=== PATIENT | female | born 1975 | race Caucasian/White ===

== ENCOUNTER 2017-01-20 15:55 | Outpatient (CLI) | payer OTHER ==
[~2017-01-20] VITALS: Ht 167.6 cm; Wt 126.0 kg
[~2017-01-20 15:55] MED LIST: AMBIEN10 MG PO; ASPIRIN81 M2 PO; LABETALOL HCL100 MG PO; PRENATAL TABLE1 EAC3 PO; PROZAC20 MG PO; XANAX1 MG PO
[2017-01-20 16:24] VITALS: BP 130/68
[2017-01-20 16:48] VITALS: BP 159/74
[2017-01-20 17:05] VITALS: BP 129/59
[2017-01-20 17:07] LABS: EOSINOPHIL (%) 0.6 % (0-5); EOSINOPHIL COUNT 0.1 K/uL (0-0.3); HEMATOCRIT 31.7 % (36.0-46.0); IMMATURE GRANULOCYTE (%) 1.2 % (0.0-0.7); IMMATURE GRANULOCYTE COUNT 0.1 K/uL; INSTRUMENT ABS NEUTROPHIL CT 7.2 K/uL; LYMPHOCYTE COUNT 2.2 K/uL (1.0-2.8); MCH 29.5 PG (29.0-34.0); MCHC 32.2 G/DL (30.0-36.0); MCV 91.6 FL (83-99); MEAN PLAT.VOLUME 10.5 uM^3 (9.5-12.4); MONOCYTE (%) 4.3 % (3-12); MONOCYTE COUNT 0.4 K/uL (0-0.8); NEUTROPHIL (%) 71.6 % (45-76); NEUTROPHIL COUNT 7.2 K/uL (1.8-6.4); NRBC (%) 0.3 /100 WBC (0-0); PLATELET COUNT 318 K/uL (156-360); RBC DIS.WIDTH-CV 14.4 % (11.8-14.6); RBC DIS.WIDTH-SD 47.4 % (39-53); RED BLOOD COUNT 3.46 M/uL (3.80-5.20); WHITE BLOOD COUNT 10.1 K/uL (4.1-10.2)
[2017-01-20 17:20] VITALS: BP 132/63
[2017-01-20 17:46] LABS: ALKALINE PHOSPHATASE 161 IU/L (3-129); ANION GAP 12 MEQ/L (2-14); CHLORIDE 104 MEQ/L (99-109); GFR ESTIMATE (CALCULATED) > 59 mL/min/; GLUCOSE 78 mg/dL (70-99); POTASSIUM 4.6 MEQ/L (3.7-5.4); SAMPLE HEMOLYSIS CHECK 0; SAMPLE ICTERIC CHECK 0; SAMPLE LIPEMIA CHECK 0; SODIUM 136 MEQ/L (136-147); TOTAL BILIRUBIN 0.3 MG/DL (0.0-1.0); UREA NITROGEN (BUN) 15 mg/dL (9-23)
[2017-01-20 17:55] LABS: UR CREATININE CONCENTRATION 175.1 MG/DL
[2017-01-20 19:20] VITALS: BP 132/64
== END 2017-01-20 19:55 | disposition home or self-care (01) ==
LOC: LDRP-OP 15:55 → 2WEST 15:56 → LDRP-OP 03-14 08:48
PROVIDERS: Obstetrics & Gynecology
DX: O10.013 Pre-existing essential hypertension complicating pregnancy, third trimester (principal); Z3A.36 36 weeks gestation of pregnancy; O30.043 Twin pregnancy, dichorionic/diamniotic, third trimester; O99.343 Other mental disorders complicating pregnancy, third trimester; F41.9 Anxiety disorder, unspecified; F32.9 Major depressive disorder, single episode, unspecified; O09.03 Supervision of pregnancy with history of infertility, third trimester; O09.513 Supervision of elderly primigravida, third trimester; O09.813 Supervision of pregnancy resulting from assisted reproductive technology, third trimester; O99.213 Obesity complicating pregnancy, third trimester; E66.9 Obesity, unspecified; Z68.42 Body mass index [BMI] 45.0-49.9, adult
CPT/HCPCS: 59025; 76805; 76810; 76818; 80053; 82570; 84156; 85025; G0378

== ENCOUNTER 2017-01-25 05:30 | Inpatient (IN) | payer OTHER ==
[~2017-01-25] VITALS: Ht 167.6 cm; Wt 124.0 kg
[2017-01-25 06:49] LABS: EOSINOPHIL COUNT 0.1 K/uL (0-0.3); HEMATOCRIT 29.7 % (36.0-46.0); IMMATURE GRANULOCYTE (%) 0.9 % (0.0-0.7); IMMATURE GRANULOCYTE COUNT 0.1 K/uL; INSTRUMENT ABS NEUTROPHIL CT 7.6 K/uL; LYMPHOCYTE COUNT 2.6 K/uL (1.0-2.8); MCH 29.5 PG (29.0-34.0); MCHC 32.3 G/DL (30.0-36.0); MCV 91.4 FL (83-99); MEAN PLAT.VOLUME 10.3 uM^3 (9.5-12.4); MONOCYTE (%) 4.2 % (3-12); MONOCYTE COUNT 0.5 K/uL (0-0.8); NEUTROPHIL COUNT 7.6 K/uL (1.8-6.4); NRBC (%) 0.2 /100 WBC (0-0); PLATELET COUNT 288 K/uL (156-360); RBC DIS.WIDTH-CV 14.5 % (11.8-14.6); RBC DIS.WIDTH-SD 47.8 % (39-53); RED BLOOD COUNT 3.25 M/uL (3.80-5.20); WHITE BLOOD COUNT 10.8 K/uL (4.1-10.2)
[2017-01-25 11:45] VITALS: BP 142/71
[2017-01-25 13:45] VITALS: BP 135/72
[2017-01-25 17:45] VITALS: BP 120/69
[2017-01-25 19:04] VITALS: BP 107/74
[2017-01-25] MEDS ORDERED: DOCUSATE SODIU100 MG PO (21:51)
[2017-01-25] MEDS ORDERED: IBUPROFEN800 MG PO (21:51)
[2017-01-25] MEDS ORDERED: ENDOCET 5-3251 EACH PO (21:51)
[2017-01-25 22:46] VITALS: BP 118/65
[2017-01-26 03:40] VITALS: BP 119/67
[2017-01-26 07:24] LABS: EOSINOPHIL COUNT 0.2 K/uL (0-0.3); HEMATOCRIT 22.3 % (36.0-46.0); IMMATURE GRANULOCYTE (%) 0.7 % (0.0-0.7); IMMATURE GRANULOCYTE COUNT 0.1 K/uL; INSTRUMENT ABS NEUTROPHIL CT 10.7 K/uL; LYMPHOCYTE COUNT 3.4 K/uL (1.0-2.8); MCHC 31.8 G/DL (30.0-36.0); MCV 94.1 FL (83-99); MEAN PLAT.VOLUME 10.7 uM^3 (9.5-12.4); MONOCYTE COUNT 0.6 K/uL (0-0.8); NEUTROPHIL (%) 71.5 % (45-76); NEUTROPHIL COUNT 10.7 K/uL (1.8-6.4); PLATELET COUNT 203 K/uL (156-360); RBC DIS.WIDTH-CV 14.6 % (11.8-14.6); RBC DIS.WIDTH-SD 49.5 % (39-53)
[2017-01-26 07:27] LABS: RED BLOOD COUNT 2.37 M/uL (3.80-5.20); WHITE BLOOD COUNT 14.9 K/uL (4.1-10.2)
[2017-01-26 07:44] VITALS: BP 124/72
[2017-01-26 11:00] VITALS: BP 125/68
[2017-01-26 15:56] VITALS: BP 143/68
[2017-01-26 19:27] VITALS: BP 128/71
[2017-01-26 23:21] VITALS: BP 141/76
[2017-01-27 07:00] VITALS: BP 134/65
[2017-01-27] MEDS ORDERED: FERROUS SULFAT325 MG PO (10:27)
[2017-01-27 19:24] VITALS: BP 147/90
[2017-01-27 23:08] VITALS: BP 139/70
[2017-01-28 03:48] VITALS: BP 160/82
[2017-01-28 07:30] VITALS: BP 135/71
== END 2017-01-28 15:00 | disposition home or self-care (01) | DRG 765 ==
LOC: 2WEST 05:30 → 2SOUTH 09:28 → 2WEST 01-28 15:00
PROVIDERS: Obstetrics & Gynecology
PROC: 10D00Z1 Extraction of Products of Conception, Low, Open Approach (ICD-10-PCS; principal; 2017-01-25)
DX: O32.2XX2 Maternal care for transverse and oblique lie, fetus 2 (principal); O30.043 Twin pregnancy, dichorionic/diamniotic, third trimester; O10.92 Unspecified pre-existing hypertension complicating childbirth; O99.02 Anemia complicating childbirth; D50.9 Iron deficiency anemia, unspecified; Z3A.37 37 weeks gestation of pregnancy; Z37.2 Twins, both liveborn; O99.214 Obesity complicating childbirth; E66.9 Obesity, unspecified; O99.820 Streptococcus B carrier state complicating pregnancy; O99.344 Other mental disorders complicating childbirth; F32.9 Major depressive disorder, single episode, unspecified; F41.9 Anxiety disorder, unspecified
CPT/HCPCS: 76805; 76810; 76818; 85025; 86850; 86900; 86901; 86920; 88307; J0690; J1100; J2175; J2274; J2405; J2765; J7120